=== PATIENT | male | born 1990 | race Two or more races ===

== ENCOUNTER 2016-12-06 14:32 | Emergency (ER) | payer BC, MEDICAID ==
[~2016-12-06] VITALS: Ht 175.3 cm; Wt 71.2 kg
[2016-12-06 15:49] LABS: Basophils # (auto) 0 uL; Basophils % (auto) 0.5 % (0.0-2.0); Eosinophils # (auto) 0.2 uL; Eosinophils % (auto) 2.5 % (0.0-7.0); Hematocrit 44.2 % (41.0-53.0); Hemoglobin 14.3 g/dL (13.5-17.5); Lymphocytes % (auto) 31.1 % (10.0-50.0); Mean Corpuscular Hemoglobin 28.5 pg (28.0-32.0); Mean Corpuscular Hgb Conc. 32.4 g/dL (32.0-36.0); Mean Platelet Volume 9.2 fL (7.4-10.4); Monocytes # (auto) 0.5 uL; Monocytes % (auto) 7.9 % (0.0-12.0); Neutrophils # (auto) 3.7 uL; Platelet Count (auto) 340 10^3/uL (140-450); Red Cell Distribution Width 13.4 % (11.6-16.0); White Blood Cell 6.4 10^3/uL (4.4-10.8)
[2016-12-06 16:08] VITALS: BP 125/75
[2016-12-06 16:09] LABS: Albumin 3.9 g/dL (3.4-5.0); BUN/Creatinine Ratio 12.9; Bilirubin, Total 0.4 mg/dL (0.2-1.0); Calcium 9.1 mg/dL (8.5-10.1); Potassium 3.8 mmol/L (3.5-5.1); Total Protein 7.6 g/dL (6.4-8.2)
[2016-12-06 16:34] LABS: Urine RBC None Seen /hpf (0 - 3)
[2016-12-06] MEDS ORDERED: SODIUM CHLORIDE 0.9% 1,000 ML IV ONE (16:42)
[2016-12-06] MEDS ORDERED: MECLIZINE HCL 25 MG TAB PO ONE (16:45)
[2016-12-06 16:47] LABS: Urine Bilirubin Negative (Negative); Urine Blood Negative /uL (Negative); Urine Color Yellow (Yellow); Urine Glucose Normal (Normal); Urine Ketone Negative (Negative); Urine Nitrite Negative (Negative); Urine Urobilinogen Normal (Negative); Urine pH 7.5 (5.0-8.0)
== END 2016-12-06 19:10 | disposition home or self-care (01) ==
LOC: ER 14:32
DX: E86.0 Dehydration (principal); F17.210 Nicotine dependence, cigarettes, uncomplicated; F12.10 Cannabis abuse, uncomplicated
CPT/HCPCS: 36415; 71020; 80053; 81001; 83735; 85025; 94761; 96360; 96361; 99285; G0434; J7030; J8597

== ENCOUNTER 2024-10-07 01:01 | Emergency (ER) | payer BC, MEDICAID | END 2024-10-07 01:25 | LOC: ER 01:01 | DX: M79.669 Pain in unspecified lower leg (principal); Z53.21 Procedure and treatment not carried out due to patient leaving prior to being seen by health care provider ==

== ENCOUNTER 2025-07-09 13:08 | Emergency (ER) | payer BC, MEDICAID ==
[~2025-07-09] VITALS: Ht 175.3 cm; Wt 82.8 kg
[2025-07-09 14:46] LABS: Hematocrit 42.1 % (41.0-53.0); Hemoglobin 14.3 g/dL (13.5-17.5); Mean Corpuscular Hemoglobin 29.4 pg (28.0-32.0); Mean Corpuscular Volume 86.5 fL (80.0-100.0); Nucleated Red Blood Cells % 0.1 %
[2025-07-09 14:52] LABS: Chloride 103 mmol/L (98-107); Potassium 3.9 mmol/L (3.5-5.1); Sodium 143 mmol/L (136-145)
[2025-07-09 14:53] LABS: Anion Gap 12 (5-15); Calcium 9.7 mg/dL (8.7-10.4); Carbon Dioxide 28 mmol/L (20-31)
[2025-07-09 14:58] LABS: Blood Urea Nitrogen 12 mg/dL (9-23); Glucose 96 mg/dL (74-106)
[2025-07-09 15:16] LABS: BUN/Creatinine Ratio 17.9 (10.0-20.0)
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
--- NOTE | 2025-07-09 16:29 | DVH ---
CT LS SPINE WO CONTRAST Indication: Back pain and incontinence EXAM DATE: 07/09/2025 03:35 PM COMPARISON: None TECHNIQUE: CT of the lumbar spine without intravenous contrast. RADIATION DOSE: CTDIvol: 35.34 mGy, DLP: 1165.36 mGy*cm FINDINGS: There is posterior intrapedicular fixation of the L1 through L5 vertebral bodies. There is an acute compression fracture of the L3 vertebral body with 30% loss height and 3 mm retropulsion. There is moderate multilevel disc space narrowing. Moderate facet hypertrophic changes. Posterior decompression at L3. [id number] bilateral sacroiliac degenerative joint disease. Nonobstructing left renal calculus measuring 2 mm. Nonobstructing right renal calculus measuring 2 mm. IMPRESSION: Acute L3 compression fracture with 30% loss height, 3 mm retropulsion. Recommend MRI lumbar spine if there is concern for compression of the thecal sac /spinal canal stenosis. Please correlate as to when the fracture occurred as there is posterior fusion at L1 through L5 and posterior decompression at L3, likely corresponding to this fracture. No prior imaging/ clinical history provided at the time of interpretation.
[2025-07-09 16:47] LABS: Urine Budding Yeast OCCASIONAL /hpf (None Seen); Urine Protein, UAD Negative (Negative)
[2025-07-09 18:04] VITALS: BP 134/96; PULSE 101; RESP 16; TEMP 97.7; O2SAT 98
== END 2025-07-09 18:20 | disposition home or self-care (01) ==
LOC: ER 13:08
DX: R32 Unspecified urinary incontinence (principal); M54.50 Low back pain, unspecified; R10.30 Lower abdominal pain, unspecified; F17.210 Nicotine dependence, cigarettes, uncomplicated
CPT/HCPCS: 36415; 72131; 80048; 81001; 85025